=== PATIENT | male | born 1995 | race Two or more races ===

== ENCOUNTER 2018-04-23 23:28 | Emergency (ER) | payer OTHER ==
[2018-04-23] MEDS ORDERED: FAMOTIDINE 20 MG TAB PO ONE (23:40)
[2018-04-23] MEDS ORDERED: diphenhydrAMINE 25 MG CAP PO ONE (23:40)
[2018-04-23] MEDS ORDERED: predniSONE 20 MG TAB PO ONE (23:40)
--- NOTE | 2018-04-23 23:42 | EDPHY ---
H & P Smoking Status: Current some day smoker Time Seen by Provider: 04/23/18 23:36 HPI/ROS: CHIEF COMPLAINT: Possible allergic reaction to shrimp HISTORY OF PRESENT ILLNESS: 22-year-old male arrives via private vehicle complaining of itching rash. He is concerned may be related to shrimp that he ate at 2:00 p.m. today. He was asymptomatic up until approximately 8:00 p.m. When he was exercising and developed diffuse urticaria at which brought him to the ER. No respiratory complaints. He performed online research and when he started reading that he could developed odynophagia he started to experience subjective odynophagia. No history of anaphylaxis urticaria. No dyspnea. No chest pain. No change in voice. REVIEW OF SYSTEMS: 10 systems reviewed and negative with the exception of the elements mentioned in the history of present illness PAST MEDICAL & SURGICAL HISTORY: No pertinent medical or surgical history SOCIAL HISTORY: Student PHYSICAL EXAM (Prior to examination, patient consented to physical exam, hands were washed and my usual and customary physical exam procedures followed) 1) GENERAL: Well-developed, well-nourished, alert and oriented. Appears to be in no acute distress. Smiling. Speaking full sentences. No signs of respiratory distress 2) HEAD: Normocephalic, atraumatic 3) HEENT: Pupils equal, round, reactive to light bilaterally. Sclera anicteric. Oropharynx: Clear no tonsillar glossal enlargement. No blunting of voice 4) NECK: Full range of motion, no meningeal signs. 5) LUNGS: Clear auscultation bilaterally, no wheezes, no rhonchi, no retractions. 6) HEART: Regular rate and rhythm, no murmur, no heave, no gallop. 7) ABDOMEN: No guarding, no rebound, no focal tenderness, negative McBurney's, negative Hill's, negative Rovsing's, negative peritoneal sign, 8) MUSCULOSKELETAL: Moving all extremities, no focal areas of tenderness, no obvious trauma. No peripheral edema or discoloration. 9) BACK: No CVA tenderness, no midline vertebral tenderness, no fluctuance, no step-off, no obvious trauma, no visual or palpable abnormality. 10) SKIN: Diffuse salmon colored raised lesions consistent with urticaria particularly to his back and chest 11) Psychiatric: Patient is oriented X 3, there is no agitation. DIFFERENTIAL DIAGNOSIS: In no particular order including but not limited to anaphylaxis, urticaria, exercise-induced anaphylaxis, food-dependent exercise- induced anaphylaxis (Luisito Kenyon Anne-Marie) Constitutional: Initial Vital Signs Temperature (C) 36.5 C 04/23/18 23:30 Heart Rate 59 L 04/23/18 23:30 Respiratory Rate 16 04/23/18 23:30 Blood Pressure 139/98 H 04/23/18 23:30 O2 Sat (%) 99 04/23/18 23:30 O2 Delivery Mode Room Air Allergies/Adverse Reactions: No Known Allergies Allergy (Unverified 04/23/18 23:30) Home Medications: Medication Instructions Recorded EPINEPHrine [Epipen 0.3 MG] 0.3 mg IM ONCE #2 syr 04/23/18 predniSONE [Prednisone] 20 mg PO DAILY #9 tablet 04/23/18 MDM/Departure - MDM Medications Given: Discontinued Medications Diphenhydramine HCl (Benadryl) 50 mg PO EDNOW ONE Stop: 04/23/18 23:41 Last Admin: 04/23/18 23:48 Dose: 50 mg Famotidine (Pepcid) 40 mg PO EDNOW ONE Stop: 04/23/18 23:41 Last Admin: 04/23/18 23:48 Dose: 40 mg Prednisone (Prednisone) 60 mg PO EDNOW ONE Stop: 04/23/18 23:41 Last Admin: 04/23/18 23:48 Dose: 60 mg ED Course/Re-evaluation: 11:42 p.m.: I evaluated the patient. Doubt anaphylaxis. He does have clinical evidence of urticaria. Will administer oral H1 H2 blockers, oral prednisone and observe in the ER for period of time. I saw this patient independently based on established practice protocols. Care of patient under supervision of secondary supervising physician Dr Bairon Galan . (Luisito Kenyon Anne-Marie) [id number]: Patient re-evaluated this time is resting comfortably. He is urticaria has improved. There has been no progression of symptoms. Patient denies any trouble breathing, trouble swelling, worsening rash. He would like to go home. He has been monitored for over 2 hr. Has been resting comfortably without any significant progression. I recommend he does not exercise after eating shellfish. Additionally recommend taking the week off from exercising. And rest. Prednisone, and Benadryl next 3 days. Return precautions discussed with the patient return if worsening reaction. He understands. (Bairon Galan) - Depart Disposition: Home, Routine, Self-Care Clinical Impression: Urticaria Condition: Good Instructions: Urticaria (ED) Additional Instructions: If you develop shortness of breath, difficulty swallowing or any other symptoms , use your EpiPen immediately and call 911 Prescriptions: EPINEPHrine [Epipen 0.3 MG] 0.3 mg IM ONCE #2 syr predniSONE [Prednisone] 20 mg PO DAILY #9 tablet Referrals: [facility],. [Clinic] - 1-2 days without fail
[2018-04-23 23:54] VITALS: BP 153/78
== END 2018-04-24 01:51 | disposition home or self-care (01) ==
DX: L50.9 Urticaria, unspecified (principal)
CPT/HCPCS: J7512